=== PATIENT | female | born 1975 | race Caucasian/White ===

== ENCOUNTER 2021-08-25 19:17 | Inpatient (IN) ==
[2021-08-25] MEDS ORDERED: Tdap (Boostrix) Vaccine 0.5 ML SYRINGE IM ONE (20:11)
[2021-08-25 20:22] LABS: Basophils # 0.1 K/mcL (0.0-0.2); Eosinophils # 0.8 K/mcL (0.0-0.6); Eosinophils % 7.5 %; Hematocrit 39.9 % (35.3-44.9); Hemoglobin 12.5 g/dL (11.5-15.4); Immature Granulocytes % 0.4 % (0-4); Lymphocytes # 3.8 K/mcL (0.6-4.6); Lymphocytes % 36.1 %; Mean Corpuscular HGB Conc 31.3 g/dL (31.6-35.5); Mean Corpuscular Volume 79.8 fL (83.0-100.0); Mean Platelet Volume 9.9 fL (9.4-12.4); Monocytes # 0.9 K/mcL (0.0-1.3); Monocytes % 8.2 %; Neutrophils # 4.9 K/mcL (1.6-8.9); Platelet Count 337 K/mcL (140-400); Red Cell Distribution Width 18.4 % (11.5-14.5); Segmented Neutrophils % 46.8 %; White Blood Count 10.5 K/mcL (4.3-11.1)
[2021-08-25 20:28] LABS: Bilirubin,Urine Negative (Negative); Blood,Urine Negative (Negative); Clarity,Urine Clear (Clear); Color,Urine Light-Yellow (Yellow); Glucose,Urine (UA) Normal (Normal); Hyaline Casts,Urine Few per lpf (None Seen); Ketones,Urine Negative (Negative); Leukocyte Esterase,Urine Trace (Negative); Mucus,Urine Few per lpf (None-Few); Nitrite,Urine Negative (Negative); Protein,Urine Negative (Neg-Trace); RBC,Urine 0-3 per hpf (0-3); Specific Gravity,Urine 1.012 (1.010-1.025); Squamous Epithelial Cell,Urine Moderate per hpf (None-Few); Urobilinogen,Urine Normal (Normal)
[2021-08-25 20:30] LABS: Amphetamine Screen,Urine Negative ng/mL (Cutoff=1000); Barbiturate Screen,Urine Negative ng/mL (Cutoff=200); Benzodiazepines Screen,Urine Negative ng/mL (Cutoff=200); Cannabinoid Screen,Urine Negative ng/mL (Cutoff = 50); Cocaine Screen,Urine Negative ng/mL (Cutoff= 300); Opiate Screen,Urine Negative ng/mL (Cutoff=300); Phencyclidine Screen,Urine Negative ng/mL (Cutoff=25)
[2021-08-25 20:41] LABS: Acetaminophen < 10 mcg/mL (10-20); BUN/Creatinine Ratio 7 (6-26); Blood Urea Nitrogen 5 mg/dL (6-20); Calcium 9.3 mg/dL (8.6-10.3); Carbon Dioxide 25 mEq/L (23-29); Chloride 106 mEq/L (98-107); Chol/HDL Ratio 4.2 (0-4.9); Cholesterol 233 mg/dL (< 200); Ethanol < 10 mg/dL (Less than 10); Glucose 149 mg/dL (70-105); HDL Cholesterol 56 mg/dL (40-59); LDL Cholesterol,Calculated 144 mg/dL (< 100); Osmolality,Calculated 288 (280-300); Potassium 3.8 mEq/L (3.5-5.1); Salicylate < 2.5 mg/dL (15.0-30.0); Sodium 139 mEq/L (136-145); Triglycerides 163 mg/dL (< 150); eGFR For African Americans > 60 (> 60); eGFR For Non-African Americans > 60 (> 60)
[2021-08-26 01:00] LABS: Influenza A PCR Negative (Negative); Influenza B PCR Negative (Negative); Resp. Syncytial Virus PCR Negative (Negative)
[2021-08-26 01:01] LABS: SARS-CoV-2 by PCR (In House) Negative (Negative)
[2021-08-26 01:12] LABS: Estimated Average Glucose 192 mg/dl; Hemoglobin A1C 8.3 %
[2021-08-26] MEDS ORDERED: Haloperidol Lactate 5 MG/ML VIAL IM PRN (01:43)
[2021-08-26] MEDS ORDERED: haloperidoL 5 MG TABLET PO PRN (01:43)
[2021-08-26] MEDS ORDERED: *HR* LORazepam 2 MG/ML VIAL IM PRN (01:43)
[2021-08-26] MEDS ORDERED: hydrOXYzine pamoate 25 MG CAPSULE PO PRN (01:43)
[2021-08-26] MEDS ORDERED: traZODone 50 MG TABLET PO PRN (01:43)
[2021-08-26] MEDS ORDERED: Ibuprofen 400 MG TABLET PO PRN (01:43)
[2021-08-26] MEDS ORDERED: *HR* LORazepam 1 MG TABLET PO PRN (01:43)
[2021-08-26 08:52] VITALS: O2SAT 95
[2021-08-26] MEDS ORDERED: Ondansetron ODT 4 MG TAB.RAPDIS SL PRN (12:13)
[2021-08-26] MEDS ORDERED: Mag Hydrox/Al Hydrox/Simeth 30 ML UDC PO PRN (12:17)
[2021-08-26] MEDS ORDERED: Nicotine 2 MG GUM BC PRN (12:17)
[2021-08-26] MEDS ORDERED: MOM Conc 10 ML UD.LIQ PO PRN (12:17)
[2021-08-26] MEDS: BuPROPion SR (12 HR) 100 MG TABLET PO SCH (14:52)
[2021-08-26] MEDS: Gabapentin 400 MG CAPSULE PO SCH ×2 (14:54→20:32)
[2021-08-26] MEDS: lamoTRIgine 100 MG TABLET PO SCH ×2 (14:54→20:32)
[2021-08-26] MEDS: *HR* Metformin 500 MG TABLET PO SCH (17:07)
[2021-08-26] MEDS: *HR* SitaGLIPtin 100 MG TABLET PO SCH (17:09)
[2021-08-26] MEDS ORDERED: QUEtiapine Fumarate 25 MG TABLET PO SCH (21:00)
[2021-08-26] MEDS ORDERED: QUEtiapine Fumarate 300 MG TABLET PO SCH (21:00)
[2021-08-27] MEDS: *HR* Metformin 500 MG TABLET PO SCH (09:09)
[2021-08-27] MEDS: Gabapentin 400 MG CAPSULE PO SCH (09:09)
[2021-08-27] MEDS: *HR* SitaGLIPtin 100 MG TABLET PO SCH (09:09)
[2021-08-27] MEDS: lamoTRIgine 100 MG TABLET PO SCH (09:10)
[2021-08-27] MEDS: BuPROPion SR (12 HR) 100 MG TABLET PO SCH (09:10)
[2021-08-27 09:56] VITALS: BP 125/79; PULSE 93; TEMP 97.8
== END 2021-08-27 13:35 | disposition home or self-care (01) | DRG 885 ==
LOC: EMEROOARM 19:17 → 1ANU 08-26 01:16
PROVIDERS: ADMIT Psychiatry & Neurology Psychiatry; ATTEND Psychiatry & Neurology Psychiatry

== ENCOUNTER 2022-01-01 02:07 | Observation (INO) ==
[2022-01-01] MEDS ORDERED: Iopamidol - 370 500 ML MLS IVP ONE (02:43)
[2022-01-01] MEDS ORDERED: Aspirin 81 MG TAB.CHEW PO ONE (02:43)
[2022-01-01 02:56] LABS: Basophils # 0.1 K/mcL (0.0-0.2); Basophils % 0.9 %; Eosinophils # 0.6 K/mcL (0.0-0.6); Eosinophils % 5.4 %; Hematocrit 38.4 % (35.3-44.9); Hemoglobin 12.4 g/dL (11.5-15.4); Immature Granulocytes % 0.3 % (0-4); Lymphocytes % 34.5 %; Mean Corpuscular HGB Conc 32.3 g/dL (31.6-35.5); Mean Corpuscular Hemoglobin 26.3 pg (28.0-33.3); Mean Corpuscular Volume 81.5 fL (83.0-100.0); Mean Platelet Volume 10.3 fL (9.4-12.4); Monocytes % 8.7 %; Neutrophils # 5.8 K/mcL (1.6-8.9); Platelet Count 250 K/mcL (140-400); Red Blood Count 4.71 M/mcL (3.82-4.97); Red Cell Distribution Width 16.3 % (11.5-14.5); Segmented Neutrophils % 50.2 %; White Blood Count 11.6 K/mcL (4.3-11.1)
[2022-01-01 03:03] LABS: INR 1.2; Prothrombin Time 12.9 Seconds (9.4-12.1)
[2022-01-01 03:06] LABS: Activated Partial Thrombo Time 31.9 Seconds (26.0-36.0)
[2022-01-01 03:20] LABS: Alanine Aminotransferase 72 Units/L (7-52); Albumin/Globulin Ratio 1.5 (1.1-2.2); Alkaline Phosphatase 114 Units/L (34-104); Aspartate Amino Transferase 56 Units/L (13-39); BUN/Creatinine Ratio 10 (6-26); Bilirubin,Direct 0.1 mg/dL (0.0-0.2); Bilirubin,Indirect 0.2 mg/dL (0.0-1.0); Bilirubin,Total 0.3 mg/dL (0.3-1.0); Blood Urea Nitrogen 6 mg/dL (6-20); Calcium 9.3 mg/dL (8.6-10.3); Carbon Dioxide 24 mEq/L (23-29); Chloride 101 mEq/L (98-107); Globulin 2.6 g/dL (2.4-3.5); Glucose 300 mg/dL (70-105); Lipase 37 Units/L (11-82); Osmolality,Calculated 289 (280-300); Potassium 3.9 mEq/L (3.5-5.1); Sodium 135 mEq/L (136-145); Total Protein 6.6 g/dL (6.4-8.9); Troponin I < 0.03 ng/mL (< 0.04)
[2022-01-01] MEDS: Nitroglycerin 0.4 MG TAB.SUBL SL PRN ×3 (04:05→18:28)
[2022-01-01] MEDS ORDERED: *HR* Dextrose 50 % in Water (Syg) 50 ML SYRINGE IVP PRN ×2 (04:56→08:52)
[2022-01-01] MEDS ORDERED: Dextrose Gel 15 GM/37.5 ML TUBE PO PRN ×4 (04:56→08:52)
[2022-01-01] MEDS ORDERED: D5% in Water 1,000 ML IVC PRN ×2 (04:56→08:52)
[2022-01-01] MEDS ORDERED: Acetaminophen 325 MG TABLET PO PRN (04:58)
[2022-01-01] MEDS ORDERED: Naloxone 0.4 MG/ML INJ IVP PRN (04:58)
[2022-01-01 05:26] LABS: Influenza A PCR Negative (Negative); Influenza B PCR Negative (Negative); Resp. Syncytial Virus PCR Negative (Negative)
[2022-01-01 05:27] LABS: SARS-CoV-2 by PCR (In House) Negative (Negative)
[2022-01-01] MEDS ORDERED: Insulin LISPRO 300 UNITS/3 ML VIAL SUBQ SCH ×2 (06:00→21:00)
[2022-01-01] MEDS ORDERED: Regadenoson 0.4 MG/5 ML SYRINGE IVP ONE (06:09)
[2022-01-01 06:31] LABS: Amphetamine Screen,Urine Negative ng/mL (Cutoff=1000); Barbiturate Screen,Urine Negative ng/mL (Cutoff=200); Benzodiazepines Screen,Urine Negative ng/mL (Cutoff=300); Bilirubin,Urine Negative (Negative); Blood,Urine Negative (Negative); Clarity,Urine Clear (Clear); Color,Urine Colorless (Yellow); Glucose,Urine (UA) 150 mg/dL (Normal); Ketones,Urine Negative (Negative); Leukocyte Esterase,Urine Negative (Negative); Nitrite,Urine Negative (Negative); Protein,Urine Negative (Neg-Trace); RBC,Urine 0-3 per hpf (0-3); Specific Gravity,Urine > 1.030 (1.010-1.025); Urobilinogen,Urine Normal (Normal); WBC,Urine 0-3 per hpf (0-3)
[2022-01-01 06:32] LABS: Cannabinoid Screen,Urine Negative ng/mL (Cutoff = 50); Cocaine Screen,Urine Negative ng/mL (Cutoff= 300); Opiate Screen,Urine Negative ng/mL (Cutoff=300); Phencyclidine Screen,Urine Negative ng/mL (Cutoff=25); Squamous Epithelial Cell,Urine Few per hpf (None-Few)
[2022-01-01] MEDS: *HR* Heparin 5,000 UNIT/ML VIAL SQ SCH ×3 (06:47→20:45)
[2022-01-01] MEDS: Morphine Sulfate 2 MG/ML SYRINGE IVP PRN ×2 (06:48→12:23)
[2022-01-01] MEDS: Aspirin Enteric Coated 81 MG Tablet PO SCH (07:48)
[2022-01-01 08:46] LABS: Chol/HDL Ratio 5.7 (0-4.9); Cholesterol 229 mg/dL (< 200); HDL Cholesterol 40 mg/dL (40-59); Magnesium 1.7 mg/dL (1.6-2.6); Triglycerides 467 mg/dL (< 150)
[2022-01-01] MEDS: Acetaminophen 325 MG TABLET PO PRN ×2 (09:50→20:43)
[2022-01-01] MEDS: Insulin LISPRO 300 UNITS/3 ML VIAL SUBQ SCH ×2 (11:34→17:09)
[2022-01-01] MEDS ORDERED: clonazePAM 1 MG TABLET PO PRN (16:50)
[2022-01-01 19:45] LABS: Estimated Average Glucose 220 mg/dl; Hemoglobin A1C 9.3 %
[2022-01-01] MEDS: lamoTRIgine 100 MG TABLET PO SCH (20:31)
[2022-01-01] MEDS ORDERED: QUEtiapine Fumarate 300 MG TABLET PO SCH (21:00)
[2022-01-02 02:29] LABS: Basophils # 0.1 K/mcL (0.0-0.2); Basophils % 1.1 %; Eosinophils # 0.5 K/mcL (0.0-0.6); Eosinophils % 6.5 %; Hematocrit 37.6 % (35.3-44.9); Immature Granulocytes % 0.4 % (0-4); Lymphocytes # 3.2 K/mcL (0.6-4.6); Lymphocytes % 44.4 %; Mean Corpuscular HGB Conc 31.9 g/dL (31.6-35.5); Mean Corpuscular Hemoglobin 26.1 pg (28.0-33.3); Mean Corpuscular Volume 81.9 fL (83.0-100.0); Mean Platelet Volume 10.3 fL (9.4-12.4); Monocytes # 0.7 K/mcL (0.0-1.3); Monocytes % 9.5 %; Neutrophils # 2.8 K/mcL (1.6-8.9); Platelet Count 215 K/mcL (140-400); Red Blood Count 4.59 M/mcL (3.82-4.97); Red Cell Distribution Width 16.3 % (11.5-14.5); Segmented Neutrophils % 38.1 %; White Blood Count 7.3 K/mcL (4.3-11.1)
[2022-01-02 02:53] LABS: Alanine Aminotransferase 70 Units/L (7-52); Albumin 3.8 g/dL (3.5-5.7); Albumin/Globulin Ratio 1.6 (1.1-2.2); Alkaline Phosphatase 105 Units/L (34-104); Aspartate Amino Transferase 60 Units/L (13-39); BUN/Creatinine Ratio 12 (6-26); Bilirubin,Direct 0.1 mg/dL (0.0-0.2); Bilirubin,Indirect 0.3 mg/dL (0.0-1.0); Bilirubin,Total 0.4 mg/dL (0.3-1.0); Blood Urea Nitrogen 8 mg/dL (6-20); Calcium 9.2 mg/dL (8.6-10.3); Carbon Dioxide 27 mEq/L (23-29); Chloride 104 mEq/L (98-107); Globulin 2.4 g/dL (2.4-3.5); Glucose 177 mg/dL (70-105); Magnesium 1.7 mg/dL (1.6-2.6); Osmolality,Calculated 287 (280-300); Sodium 137 mEq/L (136-145); Total Protein 6.2 g/dL (6.4-8.9)
[2022-01-02 03:44] LABS: Hepatitis B Surface Antigen Nonreactive (Nonreactive)
[2022-01-02 04:13] LABS: Hepatitis B Core IgM Nonreactive (Nonreactive); Hepatitis C Virus Antibody Nonreactive (Nonreactive)
[2022-01-02 04:14] LABS: Hepatitis A Antibody IgM Nonreactive (Nonreactive)
[2022-01-02] MEDS: *HR* Heparin 5,000 UNIT/ML VIAL SQ SCH (05:57)
[2022-01-02] MEDS: Insulin LISPRO 300 UNITS/3 ML VIAL SUBQ SCH ×2 (07:26→12:05)
[2022-01-02] MEDS ORDERED: Regadenoson 0.4 MG/5 ML SYRINGE IVP ONE (07:39)
[2022-01-02 11:26] VITALS: BP 119/83; PULSE 93; TEMP 98.1; O2SAT 93
[2022-01-02] MEDS: Aspirin Enteric Coated 81 MG Tablet PO SCH (12:05)
[2022-01-02] MEDS: lamoTRIgine 100 MG TABLET PO SCH (12:05)
== END 2022-01-02 15:49 | disposition home or self-care (01) ==
LOC: EMEROOARM 02:07 → 2ANU 02:07 → SUATTDRO 04:34 → 3BNU 04:41
PROVIDERS: ADMIT Student in an Organized Health Care Education/Training Program; ATTEND Internal Medicine